=== PATIENT | male | born 1995 | race Caucasian/White ===

== ENCOUNTER 2018-01-11 09:03 | Outpatient (CLI) | payer BC | END 2018-01-11 09:04 | disposition home or self-care (01) | LOC: CTENTCT 09:03 | PROVIDERS: ATTEND Otolaryngology Plastic Surgery within the Head & Neck | DX: J32.9 Chronic sinusitis, unspecified (principal) | CPT/HCPCS: 70486 ==

== ENCOUNTER 2018-02-09 06:35 | Day surgery (SDC) | payer BC ==
[2018-02-08 10:07] VITALS: BMI 23.6
[2018-02-09] MEDS ORDERED: Bacitracin Zinc Ointment 30 gm TUBE ONE (06:40)
[2018-02-09] MEDS ORDERED: Oxymetazoline HCl 0.05% ( 15 ML ) ONE ×2 (06:40→07:40)
[2018-02-09] MEDS ORDERED: Lidocaine 1% w/Epinephrine 1:200K 30 ML VIAL ONE (06:40)
[2018-02-09] MEDS ORDERED: Fentanyl 250 MCG/5 ML VIAL ONE (07:55)
[2018-02-09] MEDS ORDERED: Ondansetron HCl/PF 4 MG/2 ML Vial ONE ×2 (07:55→14:50)
[2018-02-09] MEDS ORDERED: Fentanyl 100 MCG/2 ML VIAL ONE (10:11)
[2018-02-09] MEDS ORDERED: diphenhydrAMINE 50 MG/ML VIAL ONE (11:01)
[2018-02-09] MEDS ORDERED: Dexamethasone 20 MG/5 ML VIAL ONE (14:50)
[2018-02-09] MEDS ORDERED: Glycopyrrolate 0.2 MG/ML 5 ML SYRINGE ONE (14:50)
[2018-02-09] MEDS ORDERED: PROPOFOL 200 MG/20 ML VIAL ONE (14:50)
--- NOTE | 2018-02-10 04:30 | OP ---
PREOPERATIVE DIAGNOSES: 1. Chronic rhinosinusitis. 2. Nasal septal deviation. 3. Bilateral inferior turbinate hypertrophy. POSTOPERATIVE DIAGNOSES: 1. Chronic rhinosinusitis. 2. Nasal septal deviation. 3. Bilateral inferior turbinate hypertrophy. PROCEDURES: 1. Bilateral endoscopic sinus surgery, total ethmoidectomies. 2. Bilateral endoscopic sinus surgery, maxillary antrostomies. 3. Bilateral endoscopic sinus surgery, frontal sinusotomies. 4. Nasal septoplasty. 5. Bilateral inferior turbinate submucosal resection. SURGEON: Prashanth Meneses M.D. ESTIMATED BLOOD LOSS: 50 mL. COMPLICATIONS: None. ANESTHESIA: GETA. PROCEDURE IN DETAIL: Patient was taken to the operating room and placed supine on the table. Genera l endotracheal anesthesia was obtained by the Anesthesia staff. Tube was secured in the left lower l ip. Patient was then placed in the beach chair position, and Afrin pledgets were placed in the nasal cavity. Injections of 1% lidocaine with 1:100,000 epinephrine were made into the nasal septum as wel l as the inferior turbinates. Patient was then prepped and draped in standard surgical fashion for n yuri surgery. Following this, the Afrin pledgets were removed. A Kreamer incision was made on the l eft nasal septum. Submucoperichondrial dissection was performed. The deviated portions of the septu m included portions of the cartilage and the bony septum. These isolated areas were removed using th ree cutting rongeurs. There was noted to be a large dorsal and caudal strut, left intact for support of the nose. The mucoperichondrial flaps were then reapproximated using a 4-0 gut stitch. Any stra ight pieces of cartilage were crushed prior to this and placed between the mucoperichondrial flaps. Following this, the inferior turbinates were then punctured with a submucosal coblation wand, and sub mucosal coblations were performed of multiple areas of the inferior portion of the anterior inferior turbinate. Please note that the submucosal microdebrider was used to resect the anterior and inferior portions o f the inferior turbinates bilaterally. Following this, the 0-degree scope was advanced into the midd le meatus. Middle turbinates were gently medialized with right side, there was a large middle turbin ate that had a denise bullosa present. The sickle knife was used to incise this, allowed this latera l wall of the denise bullosa and they were removed using a straight microdebrider and straight Blakes ute forceps. The uncinate process was identified anteriorly fractured using ball-ended probe. Micro debrider was then used to remove the uncinate. The ball-ended probe was then used to identify the ma xillary sinus ostia, which was then penetrated and then gently widened with the ball-ended probe, str jordanght Blakesley forceps, and the curved microdebrider. Following this, the ethmoidal bulla was ident ified bilaterally and was punctured on its medial and inferior aspect with the microdebrider and was removed. The ground lamella was identified and was punctured into the posterior ethmoidal cells work ing from posterior to anterior, the ethmoidal cells were opened in the mucosal-sparing technique. Fo llowing this, 45-degree scope along with a 40-degree microdebrider blade was then used to further ope n the frontal sinus ostia and frontal sinus recess cells area. Following this, the nasal cavity was irrigated. MeroPacks were placed in the middle meatus. Perez splints were placed and secured. The patient tolerated the procedure well.
== END 2018-02-09 12:50 | disposition home or self-care (01) ==
LOC: SDC 06:35
PROVIDERS: ATTEND Otolaryngology Plastic Surgery within the Head & Neck
PROC: 09TL8ZZ Resection of Nasal Turbinate, Via Natural or Artificial Opening Endoscopic (ICD-10-PCS; principal; 2018-02-09)
PROC: 099S8ZZ Drainage of Right Frontal Sinus, Via Natural or Artificial Opening Endoscopic (ICD-10-PCS; principal; 2018-02-09)
PROC: 09SM4ZZ Reposition Nasal Septum, Percutaneous Endoscopic Approach (ICD-10-PCS; principal; 2018-02-09)
PROC: 09TV8ZZ Resection of Left Ethmoid Sinus, Via Natural or Artificial Opening Endoscopic (ICD-10-PCS; principal; 2018-02-09)
PROC: 09TU8ZZ Resection of Right Ethmoid Sinus, Via Natural or Artificial Opening Endoscopic (ICD-10-PCS; principal; 2018-02-09)
PROC: 099T8ZZ Drainage of Left Frontal Sinus, Via Natural or Artificial Opening Endoscopic (ICD-10-PCS; principal; 2018-02-09)
PROC: 099Q8ZZ Drainage of Right Maxillary Sinus, Via Natural or Artificial Opening Endoscopic (ICD-10-PCS; principal; 2018-02-09)
PROC: 099R8ZZ Drainage of Left Maxillary Sinus, Via Natural or Artificial Opening Endoscopic (ICD-10-PCS; principal; 2018-02-09)
DX: J32.9 Chronic sinusitis, unspecified (principal); J34.2 Deviated nasal septum; J34.3 Hypertrophy of nasal turbinates; J34.89 Other specified disorders of nose and nasal sinuses; J30.81 Allergic rhinitis due to animal (cat) (dog) hair and dander; J30.1 Allergic rhinitis due to pollen; Z79.51 Long term (current) use of inhaled steroids; Z98.890 Other specified postprocedural states
CPT/HCPCS: 96374; J1100; J1200; J2405; J2704; J3010